=== PATIENT | female | born 1985 | race Caucasian/White ===

== ENCOUNTER 2018-09-25 21:34 | Inpatient (IN) | payer MEDICAID, OTHER ==
[~2018-09-25] VITALS: Ht 175.3 cm; Wt 126.1 kg
[~2018-09-25 21:34] MED LIST: NO MEDS
[2018-09-25] MEDS ORDERED: SOD CHLORIDE 0.9% 500 ML IV STA (21:37)
[2018-09-25] MEDS ORDERED: NA BICARBONATE 8.4% 50 ML SYG IV ONE (22:00)
[2018-09-25] MEDS ORDERED: DEXTROSE 50% 50 ML SYRINGE IV PRN (22:00)
[2018-09-26] MEDS ORDERED: DOCUSATE SODIUM 100 MG CAP PO PRN (00:30)
[2018-09-26] MEDS ORDERED: NACL 0.9% 3 ML SYG IV SCH (00:30)
[2018-09-26] MEDS ORDERED: BISACODYL (EC) 5 MG TAB PO PRN (00:30)
[2018-09-26] MEDS ORDERED: ONDANSETRON 4 MG INJ IV PRN ×2 (00:30)
[2018-09-26] MEDS ORDERED: ACETAMINOPHEN 325 MG TAB PO PRN ×2 (00:30)
--- NOTE | 2018-09-26 00:39 | ERD ---
ER Documentation Chief Complaint Chief Complaint bib ra from home for purposeful overdose with seroquel +etoh HPI This is a 32 female brought in by rescue from home for possible overdose with Seroquel and EtOH. Unknown amount of Seroquel has been ingested. Patient said that she ingested them 3 hours ago. She says she is suicidal. Apparently patient has previous suicide attempt as well. ROS All systems reviewed and are negative except as per history of present illness. Medications Home Meds Reported Medications [No Meds] No Conflict Check 04/10/10 Allergies Allergies: Coded Allergies: No Known Drug Allergy (Verified Allergy, Mild, NA, 12/12/09) PMhx/Soc Medical and Surgical Hx: Unable to obtain History of Surgery: No Anesthesia Reaction: No Hx Neurological Disorder: No Hx Respiratory Disorders: No Hx Cardiac Disorders: No Hx Psychiatric Problems: No Hx Miscellaneous Medical Probl: No Hx Alcohol Use: Yes Hx Substance Use: No (unknown ) Hx Tobacco Use: No Smoking Status: Never smoker Physical Exam Vitals Vital Signs Date Temp Pulse Resp B/P (MAP) Pulse Ox O2 O2 Flow FiO2 Time Delivery Rate 09/26/18 75 21 115/75 96 Room Air 00:04 (88) 09/25/18 78 20 127/83 98 Room Air 23:01 (98) 09/25/18 98.7 86 23 146/81 97 Room Air 21:44 (102) 09/25/18 98.7 84 23 144/89 97 21:44 (107) Physical Exam Const: No acute distress Head: Atraumatic Eyes: Normal Conjunctiva ENT: Normal External Ears, Nose and Mouth. Neck: Full range of motion. No meningismus. Resp: Clear to auscultation bilaterally Cardio: Regular rate and rhythm, no murmurs Abd: Soft, non tender, non distended. Normal bowel sounds Skin: No petechiae or rashes Back: No midline or flank tenderness Ext: No cyanosis, or edema Neur: Awake and alert Psych: Normal Mood and Affect Result Diagram: 09/25/18214809/25/182148 Results 24 hrs Laboratory Tests Test 09/25/18 21:39 09/25/18 21:49 09/25/18 22:07 09/25/18 22:15 Bedside Glucose 106 mg/dL White Blood Count 11.8 10^3/ul Red Blood Count 4.54 10^6/ul Hemoglobin 12.3 g/dl Hematocrit 37.9 % Mean Corpuscular 83.5 fl Volume Mean Corpuscular 27.1 pg Hemoglobin Mean Corpuscular 32.5 g/dl Hemoglobin Concen t Red Cell 14.3 % Distribution Width Platelet Count 288 10^3/UL Mean Platelet 10.5 fl Volume Immature 0.300 % Granulocytes % Neutrophils % 66.7 % Lymphocytes % 25.5 % Monocytes % 6.0 % Eosinophils % 1.2 % Basophils % 0.3 % Nucleated Red 0.0 /100WBC Blood Cells % Immature 0.040 10^3/ul Granulocytes # Neutrophils # 7.8 10^3/ul Lymphocytes # 3.0 10^3/ul Monocytes # 0.7 10^3/ul Eosinophils # 0.1 10^3/ul Basophils # 0.0 10^3/ul Nucleated Red 0.0 10^3/ul Blood Cells # Sodium Level 138 mmol/L Potassium Level 3.5 mmol/L Chloride Level 107 mmol/L Carbon Dioxide 20 mmol/L Level Anion Gap 11 Blood Urea 17 mg/dl Nitrogen Creatinine 0.61 mg/dl Est Glomerular > 60 mL/min Filtrat Rate mL/min Glucose Level 103 mg/dl Calcium Level 8.3 mg/dl Total Bilirubin 0.4 mg/dl Direct Bilirubin 0.00 mg/dl Indirect 0.4 mg/dl Bilirubin Aspartate Amino 18 IU/L Transf (AST/SGOT) Alanine 16 IU/L Aminotransferase (ALT/SGPT) Alkaline 90 IU/L Phosphatase Total Protein 7.7 g/dl Albumin 3.8 g/dl Globulin 3.90 g/dl Albumin/Globulin 0.97 Ratio Salicylates Level < 1.0 mg/dl Acetaminophen < 10.0 ug/ml Level Ethyl Alcohol 53.0 mg/dl Level Urine Color STRAW Urine Clarity CLEAR Urine pH 6.0 Urine Specific 1.011 [place] Urine Ketones TRACE mg/dL Urine Nitrite NEGATIVE mg/dL Urine Bilirubin NEGATIVE mg/dL Urine NEGATIVE mg/dL Urobilinogen Urine Leukocyte NEGATIVE Kareem/ul Esterase Urine Hemoglobin NEGATIVE mg/dL Urine Glucose NEGATIVE mg/dL Urine Total NEGATIVE mg/dl Protein Urine Opiates Negative Screen Urine Negative Barbiturates Urine Negative Amphetamines Screen Urine Negative Benzodiazepines Screen Urine Cocaine Negative Screen Urine Negative Cannabinoids POC Beta HCG, NEGATIVE Qualitative Current Medications Medications Dose Sig/Leoncio Start Time Status Last (Trade) Ordered Route PRN Stop Time Admin Dose Reason Admin Sodium 500 ml @ Q1H STAT 09/25/18 DC 09/25/18 Chloride 500 mls/hr IV 21:37 21:45 09/25/18 22:37 Dextrose 25 ml ONCE PRN 09/25/18 (D50w IV 22:00 Syringe) HYPOGLYCEMIA (BS<70) Sodium 50 ml ONCE ONCE 09/25/18 DC 09/25/18 Bicarbonate IV 22:00 21:45 (Na Bicarb 09/25/18 22:01 8.4% Syg) Ondansetron 4 mg ER BRIDGE 09/26/18 HCl (Zofran PRN IV 00:30 Inj) NAUSEA/VOMITI 09/27/18 00:29 NG 650 mg ER BRIDGE 09/26/18 Acetaminophen PRN PO 00:30 (Tylenol .MILD PAIN 09/27/18 00:29 Tab) 1-3 OR TEMP Sodium 1,000 ml @ [id number] IV 09/26/18 Chloride 70 mls/hr 00:12 09/27/18 00:11 IV Flush 3 ml PER 09/26/18 (NS 3 ml) PROTOCOL IV 00:30 Ondansetron 4 mg Q6H PRN 09/26/18 HCl (Zofran IV 00:30 Inj) NAUSEA/VOMITI NG 650 mg Q6H PRN 09/26/18 Acetaminophen PO .PAIN 1-3 00:30 (Tylenol OR TEMP Tab) Docusate 100 mg Q12H PRN 09/26/18 Sodium PO 00:30 (Colace) .CONSTIPATION Bisacodyl 5 mg DAILY PRN 09/26/18 (Dulcolax) PO 00:30 .CONSTIPATION Procedures/MDM Medical decision makin-year-old female who has intentional overdose and dangerous medication. Patient cannot be medically cleared for psychiatric evaluation at this time is to be admitted for further evaluation management. Poison control was called. Dr. Adams was made aware. Departure Diagnosis: Primary Impression: Intentional drug overdose Encounter type: initial encounter Qualified Codes: T50.902A - Poisoning by unspecified drugs, medicaments and biological substances, intentional self- harm, initial encounter Additional Impression: Suicide attempt by substance overdose Encounter type: initial encounter Qualified Codes: T65.92XA - Toxic effect of unspecified substance, intentional self-harm, initial encounter Condition: Serious MOGHADAM,DAHLIA S. Sep 26, 2018 00:39
[2018-09-26] MEDS ORDERED: LORAZEPAM 2 MG INJ IV PRN ×2 (01:00→08:00)
[2018-09-26] MEDS: SOD CHLORIDE 0.9% 1,000 ML IV SCH ×2 (01:12→13:38)
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
[2018-09-26] MEDS ORDERED: MULTIVITAMINS 10 ML, THIAMINE 100 MG, FOLIC ACID 1 MG in SOD CHLORIDE 0.9% 1,000 ML IVPB SCH (02:00)
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
[2018-09-26] MEDS ORDERED: HALOPERIDOL 5 MG INJ IM PRN (08:00)
[2018-09-26 08:36] VITALS: BP 129/74; PULSE 66; RESP 18
[2018-09-26 08:45] VITALS: Ht 175.3 cm; Wt 126.1 kg
[2018-09-26 11:30] VITALS: BP 134/74; PULSE 72; RESP 18
[2018-09-26 12:06] VITALS: PULSE 70
[2018-09-26 15:24] VITALS: BP 142/72; PULSE 99; RESP 18
[2018-09-26] MEDS ORDERED: LORAZEPAM 2 MG INJ IV ONE (16:30)
--- NOTE | 2018-09-26 16:39 | CONS ---
Date/Time of Note Date/Time of Note DATE: 09/26/18 TIME: 16:33 Consult Date/Type/Reason Admit Date Sep 26, 2018 at 00:07 Type of Consult Psych Subjective Patient is a 32-year-old female who is currently on 6 floor of for suicidal ideation and suicidal attempts. [id number] evaluation, patient is tearful ,states she really does not deserve to live anymore, she states she is overwhelmed, feels like she is stuck in the mud. Patient is increasingly anxious, she reports feeling hopeless and helpless, overwhelmed with her son's care. Patient states she has been increasingly depressed because she feels like her only outlet is exercise and she is not able to do any exercise because of sounds disruptive behavior. She continues to endorse suicidal ideation and unab le to contract for safety. Discussed risk and benefits of antidepressants Effexor and BuSpar and patient verbalized understanding. Objective Patient Appearance: Poor Hygiene Voice Loudness: Mildly Soft/Quiet Mood and Affect Description: Cooperative Mood or Affect: Cooperative Speech Pattern: Clear Thought Process: Intact, Thought Blocking Hallucination Type: None Delusion Description: Not Present Assessment/Plan Problems: (1) Major depressive disorder, recurrent severe without psychotic features Recommendations BuSpar 10 mg twice a day. Ativan 0.25 mg once, Effexor 75 mg daily, involuntary admission to inpatient psychiatry VICTORINA AVINA NP Sep 26, 2018 16:39
[2018-09-26 17:07] VITALS: PULSE 89
--- NOTE | 2018-09-26 17:38 | PN ---
Date/Time of Note Date/Time of Note DATE: 09/26/18 TIME: 17:33 Assessment/Plan VTE Prophylaxis SCD applied (from Nsg): Yes Pharmacological prophylaxis: NA/contraindicated Pharm contraindication: low risk/ambulating Lines/Catheters IV Catheter Type (from Nrsg): Saline Lock Assessment/Plan Assessment/Plan 31-year-old morbidly obese woman admitted after intentional benzodiazepene overdose, still actively suicidal. # intentional drug overdose: - Patient reports clonazepam overdose. Also drinking alcohol. - No history of psychiatric disorder. Does not follow psychotherapist or psychiatrist. - Transfer to [facility]. Sitter at all times. - Evaluated by psychiatry. Patient is still suicidal and qualifies for a 5150. - Patient is medically stable for discharge to inpatient psychiatry facility. #DVT GI prophylaxis: SCDs, no GI prophylaxis indicated Dispo: Case management consulted for transfer to inpatient psychiatry. Result Diagram: 09/25/18214809/25/182148 Subjective 24 Hr Interval Summary Free Text/Dictation No acute overnight events. Patient awake and alert, explains that she has trouble caring for her autistic son. Typical symptoms of major depressive disorder. Evaluated by [facility] also. Exam/Review of Systems Exam Vitals Vital Signs Date Temp Pulse Resp B/P (MAP) Pulse Ox O2 O2 Flow FiO2 Time Delivery Rate 09/26/18 89 17:07 09/26/18 98.6 18 142/72 98 Room Air 15:24 (95) Exam General: Morbidly obese woman lying in bed, she does not appear to be in acute distress HEENT: Atraumatic, normocephalic. The pupils are equal, round and reactive. Extraocular motor are intact Neck: Supple with full range of motion. No rigidity or meningismus Chest: Nontender Lungs: Clear to auscultation bilaterally no crackles rales or wheezing Heart: Normal S1-S2, Regular rhythm and rate. No murmur, S3, or S4 Abdomen: Obese, soft , nontender, nondistended , bowel sounds are present. No guarding no rebound tenderness , No masses or organomegaly. No costovertebral temporal angle mass Extremities: Normal to inspection, no edema no cyanosis Results Results 24hrs Laboratory Tests Test 09/25/18 21:39 09/25/18 21:49 09/25/18 22:07 09/25/18 22:15 Bedside Glucose 106 White Blood Count 11.8 H Red Blood Count 4.54 Hemoglobin 12.3 Hematocrit 37.9 Mean Corpuscular 83.5 Volume Mean Corpuscular 27.1 L Hemoglobin Mean Corpuscular 32.5 Hemoglobin Concent Red Cell 14.3 Distribution Width Platelet Count 288 Mean Platelet Volume 10.5 H Immature 0.300 Granulocytes % Neutrophils % 66.7 Lymphocytes % 25.5 Monocytes % 6.0 Eosinophils % 1.2 Basophils % 0.3 Nucleated Red Blood 0.0 Cells % Immature 0.040 H Granulocytes # Neutrophils # 7.8 H Lymphocytes # 3.0 H Monocytes # 0.7 Eosinophils # 0.1 Basophils # 0.0 Nucleated Red Blood 0.0 Cells # Sodium Level 138 Potassium Level 3.5 Chloride Level 107 Carbon Dioxide Level 20 L Anion Gap 11 Blood Urea Nitrogen 17 Creatinine 0.61 Est Glomerular > 60 Filtrat Rate mL/min Glucose Level 103 Calcium Level 8.3 L Total Bilirubin 0.4 Direct Bilirubin 0.00 Indirect Bilirubin 0.4 Aspartate Amino 18 Transf (AST/SGOT) Alanine 16 Aminotransferase (AL T/SGPT) Alkaline Phosphatase 90 Total Protein 7.7 Albumin 3.8 Globulin 3.90 H Albumin/Globulin 0.97 Ratio Salicylates Level < 1.0 L Acetaminophen Level < 10.0 L Ethyl Alcohol Level 53.0 H Urine Color STRAW Urine Clarity CLEAR Urine pH 6.0 Urine Specific 1.011 Morrow Urine Ketones TRACE A Urine Nitrite NEGATIVE Urine Bilirubin NEGATIVE Urine Urobilinogen NEGATIVE Urine Leukocyte NEGATIVE Esterase Urine Hemoglobin NEGATIVE Urine Glucose NEGATIVE Urine Total Protein NEGATIVE Urine Opiates Screen Negative Urine Barbiturates Negative Urine Amphetamines Negative Screen Urine Negative Benzodiazepines Screen Urine Cocaine Screen Negative Urine Cannabinoids Negative POC Beta HCG, NEGATIVE Qualitative Medications Medication Current Medications Dextrose (D50w Syringe) 25 ml ONCE PRN IV HYPOGLYCEMIA (BS<70); Start 09/25/18 at 22:00 Sodium Chloride 1,000 ml @ 70 mls/hr [id number] IV Last administered on 09/26/18at 13:38; Admin Dose 70 MLS/HR; Start 09/26/18 at 00:12; Stop 09/27/18 at 00:11 IV Flush (NS 3 ml) 3 ml PER PROTOCOL IV ; Start 09/26/18 at 00:30 Ondansetron HCl (Zofran Inj) 4 mg Q6H PRN IV NAUSEA/VOMITING; Start 09/26/18 at 00:30 Acetaminophen (Tylenol Tab) 650 mg Q6H PRN PO .PAIN 1-3 OR TEMP; Start 09/26/18 at 00:30 Docusate Sodium (Colace) 100 mg Q12H PRN PO .CONSTIPATION; Start 09/26/18 at 00:30 Bisacodyl (Dulcolax) 5 mg DAILY PRN PO .CONSTIPATION; Start 09/26/18 at 00:30 Haloperidol (Haldol) 5 mg Q4H PRN IM AGITATION; Start 09/26/18 at 08:00 Lorazepam (Ativan) 1 mg Q6H PRN IV AGITATION/ANXIETY; Start 09/26/18 at 08:00 Venlafaxine HCl (Effexor) 75 mg BID PO ; Start 09/26/18 at 21:00 DIVYA MARIE MD Sep 26, 2018 17:38
[2018-09-26 20:00] VITALS: BP 143/89; PULSE 80; PULSE 86; RESP 20
[2018-09-26] MEDS: VENLAFAXINE 75 MG TABLET PO SCH (20:33)
[2018-09-27] VITALS (8 sets, daily range): BP systolic 132–176; BP diastolic 78–90; PULSE 59–83; RESP 16–22
[2018-09-27] MEDS: VENLAFAXINE 75 MG TABLET PO SCH (09:09)
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
== END 2018-09-27 16:52 | DRG 918 ==
LOC: E/R 21:34 → 6WM 09-26 00:07
PROVIDERS: ADMIT Family Medicine; ATTEND Internal Medicine
DX: T43.592A Poisoning by other antipsychotics and neuroleptics, intentional self-harm, initial encounter (principal); F33.2 Major depressive disorder, recurrent severe without psychotic features; Z68.41 Body mass index [BMI] 40.0-44.9, adult; T51.92XA Toxic effect of unspecified alcohol, intentional self-harm, initial encounter; T42.4X2A Poisoning by benzodiazepines, intentional self-harm, initial encounter; Y92.012 Bathroom of single-family (private) house as the place of occurrence of the external cause; E66.01 Morbid (severe) obesity due to excess calories
CPT/HCPCS: 36415; 70450; 80053; 80061; 80307; 81003; 81025; 82533; 82962; 83036; 84439; 84443; 85025; 93005; 96374; J2060; J3411; J7030; J7040